=== PATIENT | female | born 1985 | race African-American/Black ===

== ENCOUNTER 2021-03-26 05:35 | Emergency (ER) | payer OTHER ==
[~2021-03-26] VITALS: Ht 177.8 cm; Wt 82.2 kg
[2021-03-26 05:59] LABS: BASO % 1 % (0-3); EOS # 0.1 x10^3/uL (0.0-0.7); EOS % 1 % (0-3); HEMATOCRIT 34.1 % (36.0-47.0); HEMOGLOBIN 11.6 g/dL (12.0-15.5); LYMPH # 3.4 x10^3/uL (1.0-4.8); LYMPH % 55 % (24-48); MEAN CORPUSCULAR HEMOGLOBIN 33 pg (25-35); MEAN CORPUSCULAR HGB CONC 34 g/dL (31-37); MEAN CORPUSCULAR VOLUME 96 fL (79-100); MONO # 0.5 x10^3/uL (0.0-1.1); MONO % 8 % (0-9); NEUT # 2.2 x10^3/uL (1.8-7.7); NEUT % 35 % (31-73); PLATELET COUNT 284 x10^3/uL (140-400); RED BLOOD COUNT 3.56 x10^6/uL (3.50-5.40); RED CELL DISTRIBUTION WIDTH 12.9 % (11.5-14.5); WHITE BLOOD COUNT 6.1 x10^3/uL (4.0-11.0)
--- NOTE | 2021-03-26 06:04 | PHYS DOC ---
Past Medical History Past Medical History: No Pertinent History (JD CEDENO DO) Past Surgical History: No Surgical History (JD CEDENO DO) Smoking Status: Current Every Day Smoker Alcohol Use: Occasionally Drug Use: Opiates (JD ECDENO DO) General Adult EDM: Chief Complaint: OVERDOSE HPI: HPI: Patient is a 35-year-old female presenting via EMS for overdose. This was reported accidental in nature. Patient was drinking last night, admits drinking a pint of hard liquor and subsequently taking a Percocet, she reports history of doing this recreationally. Patient was with friends at time of respiratory depression and suspect arrest, it is unclear if patient received any chest compressions but EMS was called. On arrival to scene, EMS had difficulty pulling out patient from car. Patient had respirations of 2 with pinpoint pupils and GCS 3 and so, IV access was obtained and a total of 0.2 mg Narcan ad ministered with complete resolution of symptoms (JD CEDENO DO) Review of Systems: Review of Systems: Fourteen body systems of review of systems have been reviewed. See HPI for pertinent positives and negative responses, other redding all other systems are negative, non-pertinent or non-contributory (JD CEDENO DO) Heart Score: C/O Chest Pain: No HEART Score for Chest Pain: HEART Score for Chest Pain Response (Comments) Value Age < 45 0 Risk Factors No Risk Factors 0 Total 0 Risk Factors: Risk Factors: DM, Current or recent (<one month) smoker, HTN, HLP, family history of CAD, obesity. Risk Scores: Score 0 - 3: 2.5% MACE over next 6 weeks - Discharge Home Score 4 - 6: 20.3% MACE over next 6 weeks - Admit for Clinical Observation Score 7 - 10: 72.7% MACE over next 6 weeks - Early Invasive Strategies (JD CEDENO DO) Allergies: Allergies: Allergies Coded Allergies Type Severity Reaction Last Updated Verified No Known Drug Allergies 03/26/21 No (JD CEDENO DO) Physical Exam: PE: Constitutional: Pt is oriented to person, place, and time. Pt appears well-developed and well-nourished. HEENT: Head: Normocephalic and atraumatic. External ears unremarkable Conjunctivae and EOM are normal. Pupils are equal, round, and reactive to light. Oropharynx is clear and moist. No hematomas or lacerations or abrasions to face or scalp OP clear, no blood, no malocclusion, dentition intact Nares clear, no nasal septal hematoma Midface stable Neck: C-spine midline nontender, no step-offs Cardiovascular: Normal rate, regular rhythm and normal heart sounds. No flail chest, no obvious palpable and/or visual abnormalities of chest wall Pulmonary/Chest: Effort normal and breath sounds normal. No respiratory distress. No wheezes. CTA bilaterally Abdominal: Soft. Bowel sounds are normal. Pt exhibits no distension. There is no tenderness. Musculoskeletal: No bony tenderness to extremities, no deformities, full ROM extremities Chest wall stable Pelvis stable and non-tender No vertebral TTP and spine without stepoffs Neurological: Pt is alert and oriented to person, place, and time. Moving all extremities willfully, able to wiggle all fingers and toes Alert and oriented x 3 Sensation grossly intact Skin: Skin is warm and dry. No abrasions, no lacerations Psychiatric: Tearful affect (JD CEDENO DO) EKG: EKG: [] (JD CEDENO DO) Radiology/Procedures: Radiology/Procedures: [] (JD CEDENO DO) Course & Med Decision Making: Course & Med Decision Making Initial vitals unremarkable, HPI consistent with accidental overdose and patient who denies active SI/HI, physical exam nonconcerning for any emergent or surgical issues Initial ER work-up ensued and pending at time of of my shift end. I gave comprehensive signout to oncoming physician. Please defer to his documentation regarding future care of patient while in ER (JD CEDENO DO) Course & Med Decision Making Assumed care at shift change disposition pending labs and radiologic imaging. CT imaging reviewed no acute traumatic injury. Patient's labs reviewed patient's potassium 3.0 Patient discharged home with potassium. Patient clinically sober ambulated with a steady gait. (ROSALINDA FRANCIS DO) Dragon Disclaimer: Nehal Disclaimer: This electronic medical record was generated, in whole or in part, using a voice recognition dictation system. (JD CEDENO DO) Departure Departure Impression: Primary Impression: Alcohol intoxication Additional Impression: Hypokalemia Disposition: 01 HOME / SELF CARE / HOMELESS Patient Instructions: Alcohol Intoxication, Hypokalemia JD CEDENO DO Mar 26, 2021 06:04 ROSALINDA FRANCIS DO Mar 26, 2021 08:28
[2021-03-26 06:19] LABS: ETHANOL 144 mg/dL (0-10); SALIC < 2.8 mg/dL (2.8-20.0)
[2021-03-26 06:20] LABS: ACETAMIN < 2 mcg/ml (10-30)
--- NOTE | 2021-03-26 06:39 | EKG ---
[facility] [address] [place] [address] Test Date: 2021-03-26 Test Time: 06:02:54 Pat Name: MARA FISHMAN Department: Room: Gender: F [employer]: : 1985 Requested By: JD CEDENO Order Number: [id number] Reading MD: Measurements Intervals [place] Rate: 96 P: 94 WI: 136 QRS: 62 QRSD: 78 T: 68 QT: 392 QTc: 496 Interpretive Statements SINUS RHYTHM QRS(T) CONTOUR ABNORMALITY CONSISTENT WITH ANTEROSEPTAL INFARCT AGE UNDETERMINED ABNORMAL ECG RI6.02 No previous ECG available for comparison
[2021-03-26 06:40] LABS: ALBUMIN 3.6 g/dL (3.4-5.0); GFR 77.3; TOTAL BILIRUBIN 0.2 mg/dL (0.2-1.0); TOTAL PROTEIN 7.3 g/dL (6.4-8.2)
[2021-03-26 06:45] LABS: CALCIUM 8.2 mg/dL (8.5-10.1)
[2021-03-26 07:32] LABS: BILIRUBIN,URINE NEGATIVE (NEG); CLARITY,URINE CLEAR; COLOR,URINE YELLOW; NITRITE,URINE NEGATIVE (NEG); PROTEIN,URINE NEGATIVE (NEG-TRACE); UROBILINOGEN,URINE 0.2 mg/dL (0.2 mg/dL)
[2021-03-26 07:36] LABS: BARBITURATES NEG (NEG); BENZODIAZEPINES NEG (NEG); CANNABINOIDS POS (NEG); COCAINE POS (NEG); METHADONE NEG (NEG); OPIATES NEG (NEG); PHENCYCLIDINE NEG (NEG)
[2021-03-26 07:37] LABS: AMPHETAMINE/METHAMPHETAMINE NEG (NEG)
[2021-03-26 07:47] LABS: BACTERIA,URINE FEW /HPF (0-FEW); HYALINE CASTS, URINE MODERATE /HPF; RBC,URINE 0 /HPF (0-2); WBC,URINE OCC /HPF (0-4)
--- NOTE | 2021-03-26 08:08 | RAD ---
CT HEAD AND C-SPINE WO Date: 03/26/2021 7:42 AM Clinical Indication: overdose Comparison: None. Technique: 5 mm axial tomographic images were obtained of the head without contrast. These were view ed on brain and bone windows. CT imaging of the cervical spine was performed without contrast. Coron al and sagittal reformatted images were performed. One or more of the following dose reduction techni ques were utilized: Automated exposure control (AEC), Adjustment of mA and/or kV according to patient size, Use of iterative reconstruction technique such as ASiR, CT scan done according to ALARA and im age gently/image wisely HEAD FINDINGS: The brain parenchyma is normal in attenuation. No intra- or extra-axial mass or fluid collection. No acute hemorrhage. The ventricles are normal in size, shape, and morphology. The ac-white matter chandni ction is normal. The basilar cisterns are patent. The visualized paranasal sinuses are normal. The visualized portions of the orbits and globes are no rmal. The mastoid air cells are clear. No aggressive osseous lesion or fracture. CERVICAL SPINE FINDINGS: The cervical spine is normally aligned. No acute fracture. No aggressive lytic or blastic osseous les ion. The intervertebral disc heights are maintained. No high-grade spinal canal stenosis or neural foramin al narrowing. The thyroid gland is normal. No cervical lymphadenopathy. The visualized aerodigestive tract is unrem arkable. The visualized lung apices are clear. IMPRESSION: 1. No acute hemorrhage or loss of ac-white differentiation. 2. No acute osseous abnormality of the cervical spine. Electronically signed by: Bucky Garza MD (03/26/2021 8:06 AM) [id number]
--- NOTE | 2021-03-26 08:22 | RAD ---
AP chest. HISTORY: Overdose AP view was taken of the chest. Heart is normal in size. There is no pleural effusion. There are no a cute infiltrates. IMPRESSION: 1. No acute infiltrates. Electronically signed by: Brett Maguire MD (03/26/2021 8:19 AM) [id number]
[2021-03-26] MEDS ORDERED: POTA20TA4 PO (08:31)
[2021-03-26 08:34] VITALS: BP 150/87
[2021-03-26] MEDS ORDERED: ONDA4TAB7 PO (08:38)
[2021-03-26] MEDS ORDERED: ONDANSETRON PF 4 MG/2 ML VIAL. IVP ONE (08:45)
== END 2021-03-26 09:03 | disposition home or self-care (01) ==
LOC: ER 05:35
DX: F10.129 Alcohol abuse with intoxication, unspecified (principal); Y90.6 Blood alcohol level of 120-199 mg/100 ml; E87.6 Hypokalemia; R07.89 Other chest pain; F17.200 Nicotine dependence, unspecified, uncomplicated; R51.9 Headache, unspecified; M54.2 Cervicalgia
CPT/HCPCS: 36415; 70450; 71045; 72125; 80053; 80307; 80329; 81001; 81025; 84484; 85025; 93005; 96374; 99285; G0480; J2405

== ENCOUNTER 2021-09-08 11:50 | Emergency (ER) | payer SELFPAY ==
[~2021-09-08] VITALS: Ht 177.8 cm; Wt 81.8 kg
[~2021-09-08 11:50] MED LIST: ONDA4TAB7 PO; POTA20TA4 PO
[2021-09-08] MEDS ORDERED: EPINEPHrine 1 MG/ML VIAL ONE (11:58)
[2021-09-08] MEDS ORDERED: EPINEPHrine 1 MG/ML VIAL IM PRN (12:15)
--- NOTE | 2021-09-08 13:34 | PHYS DOC ---
Past Medical History Past Medical History: No Pertinent History Past Surgical History: No Surgical History Additional Past Surgical Histo: Breast implants Smoking Status: Light Tobacco Smoker Alcohol Use: Occasionally Drug Use: Opiates General Adult EDM: Chief Complaint: ALLERGIC REACTION HPI: HPI: Patient is a 35 year old female who presents with swelling around her eyes. She believes this is a result of hairspray that she used recently. She washed out the hairspray last night and had some burning/stinging in the skin around her eyes. She went to bed and woke up with severe swelling around her eyes bilaterally. Denies any tongue, throat, or intraoral swelling. Denies any shortness of breath. No nausea/vomiting, or diarrhea. No hives. She received IV epinephrine with EMS, Benadryl, and Zofran prior to arrival. Review of Systems: Review of Systems: Constitutional: Denies fever or chills. [] Eyes: Denies change in visual acuity. [] HENT: Reports swelling around her eyes Respiratory: Denies cough or shortness of breath. [] Cardiovascular: Denies chest pain or edema. [] GI: Denies abdominal pain, nausea, vomiting, bloody stools or diarrhea. [] : Denies dysuria. [] Musculoskeletal: Denies back pain or joint pain. [] Integument: Denies rash. [] Neurologic: Denies headache, focal weakness or sensory changes. [] Endocrine: Denies polyuria or polydipsia. [] Lymphatic: Denies swollen glands. [] Psychiatric: Denies depression or anxiety. [] Heart Score: C/O Chest Pain: No Current Medications: Current Medications Medications (Trade) Dose Ordered Sig/Jina Start Time Stop Time Status Last Admin Dose Admin Epinephrine HCl (Adrenalin) 0.3 mg PRN Q5MIN PRN 09/08/21 12:15 09/08/21 12:38 0.3 MG Allergies: Allergies: Allergies Uncoded Allergies Type Severity Reaction Last Updated Verified HAIR SPRAY Allergy Intermediate 09/08/21 Physical Exam: PE: Constitutional: Well developed, well nourished, no acute distress, non-toxic appearance. [] HENT: Edema surrounding the eyes and upper cheeks bilaterally. Is able to open the eyes. No conjunctival changes. No lip, tongue, uvula, or oropharyngeal edema apparent. Neck: Normal range of motion, no tenderness, supple, Cardiovascular:Heart rate regular rhythm, no murmur [] Lungs & Thorax: No wheezing. No stridor. Bilateral breath sounds clear to auscultation [] Abdomen: Bowel sounds normal, soft, no tenderness, no masses, no pulsatile masses. [] Skin: No hives. Warm, dry, no erythema, no rash. [] Back: No tenderness, no CVA tenderness. [] Extremities: No tenderness, no cyanosis, no clubbing, ROM intact, no edema. [] Neurologic: Alert and oriented X 3, normal motor function, normal sensory function, no focal deficits noted. [] Psychologic: Affect normal, judgement normal, mood normal. [] Current Patient Data: Vital Signs: Vital Signs Date Time Temp Pulse Resp B/P (MAP) Pulse Ox O2 Delivery O2 Flow Rate FiO2 09/08/21 11:51 98.1 82 16 108/62 (77) 98 Room Air 98.1 EKG: EKG: [] Radiology/Procedures: Radiology/Procedures: [] Course & Med Decision Making: Course & Med Decision Making Pertinent Labs and Imaging studies reviewed. (See chart for details) Patient 35-year-old female who presents with edema around her eyes bilaterally that she believes is due to an exposure to a new hairspray. She has no evidence of oropharyngeal swelling, hives, wheezing, or GI effects to suggest anaphylaxis. Seems to be localized allergic reaction. Given the location of the face, and difficulty with eye opening I did attempt IM epinephrine, which did not improve her symptoms. Patient is remained stable for 2 hours of observation. Feel she is safe for discharge with return precautions for shortness of breath, lip, tongue, throat swelling. Advised ongoing Benadryl and H2 blockers. Dragon Disclaimer: Nehal Disclaimer: This electronic medical record was generated, in whole or in part, using a voice recognition dictation system. Departure Departure Impression: Primary Impression: Allergic reaction Disposition: 01 HOME / SELF CARE / HOMELESS Condition: STABLE Referrals: NO PCP (PCP) Additional Instructions: Please discontinue the use of this hair product. Please use Benadryl 25-50 mg every 6 hours for facial swelling. He can also use famotidine 20 mg every 12 hours. This should hopefully improve over the next few days. If you develop shortness of breath, tongue swelling, throat swelling, wheezing, or other new/concerning symptoms please return to the emergency department for reevaluation. PHYLLIS GRAY MD Sep 08, 2021 13:34
[2021-09-08 13:49] VITALS: BP 95/57
== END 2021-09-08 13:55 | disposition home or self-care (01) ==
LOC: ER 11:50
DX: T78.40XA Allergy, unspecified, initial encounter (principal); Z72.0 Tobacco use
CPT/HCPCS: 96372; 99285; J0171